=== PATIENT | male | born 1975 | race African-American/Black ===

== ENCOUNTER 2018-07-02 16:52 | Inpatient (IN) | payer MEDICAID, OTHER ==
[2018-07-02 17:08] LABS: ADD MAN DIFF? NO
[2018-07-02 17:12] LABS: WHITE BLOOD COUNT 7.6 10^3/ul (4.8-10.8)
[2018-07-02 17:12] LABS: BASOPHIL # 0.1 10^3/ul (0.0-0.1); BASOPHILS % 0.9 % (0.0-2.0); EOSINOPHILS # 0.7 10^3/ul (0.0-0.5); EOSINOPHILS % 9.2 % (0.0-7.0); HEMATOCRIT 39.4 % (42.0-52.0); HEMOGLOBIN 12.9 g/dl (14.0-18.0); MEAN CORPUSCULAR HEMOGLOBIN 30.6 pg (29.0-33.0); MEAN CORPUSCULAR HGB CONC 32.7 g/dl (32.0-37.0); MEAN CORPUSCULAR VOLUME 93.6 fl (82.0-101.0); MEAN PLATELET VOLUME 9.5 fl (7.4-10.4); MONOCYTE # 0.7 10^3/ul (0.3-0.9); MONOCYTES % 8.5 % (0.0-11.0); NEUTROPHIL # 4.2 10^3/ul (1.6-7.5); NEUTROPHILS % 55.3 % (39.0-77.0); PLATELET COUNT 292 10^3/UL (140-415); RED BLOOD COUNT 4.21 10^6/ul (4.70-6.10); RED CELL DISTRIBUTION WIDTH 12.1 % (11.5-14.5)
[2018-07-02 17:30] LABS: ALANINE AMINOTRANSFERASE 58 IU/L (13-69); ALBUMIN 4.4 g/dl (3.3-4.9); ALBUMIN/GLOBULIN RATIO 1.37; ALKALINE PHOSPHATASE 106 IU/L (42-121); ANION GAP 12 (5-13); ASPARTATE AMINO TRANSFERASE 83 IU/L (15-46); BILIRUBIN,INDIRECT 0.4 mg/dl (0-1.1); BILIRUBIN,TOTAL 0.4 mg/dl (0.2-1.3); BLOOD UREA NITROGEN 19 mg/dl (7-20); CALCIUM 9.2 mg/dl (8.4-10.2); CARBON DIOXIDE 24 mmol/L (21-31); CHLORIDE 108 mmol/L (97-110); CREATININE 1.06 mg/dl (0.61-1.24); Estimated GFR > 60 mL/min (>60); GLUCOSE 88 mg/dl (70-220); SODIUM 144 mmol/L (135-144); TOTAL PROTEIN 7.6 g/dl (6.1-8.1)
[2018-07-02 17:32] LABS: ETHANOL < 10.0 mg/dl (0-0)
[2018-07-02 17:47] LABS: CREATINE KINASE 4138 IU/L (23-200)
[2018-07-02] MEDS: DIPHTH/TET/ACEL PERTUSS (ADULT) 0.5 ML VIAL IM* (18:30)
[2018-07-02] MEDS: HALOPERIDOL 5 MG INJ IM (19:44)
[2018-07-02] MEDS: LORAZEPAM 2 MG INJ IM (19:44)
[2018-07-02] MEDS: SOD CHLORIDE 0.9% 1,000 ML IV ×2 (20:00→21:20)
[2018-07-02] MEDS ORDERED: NACL 0.9% 3 ML SYG IV (20:30)
[2018-07-02] MEDS ORDERED: DOCUSATE SODIUM 100 MG CAP PO (20:30)
[2018-07-02] MEDS ORDERED: ACETAMINOPHEN 325 MG TAB PO ×2 (20:30)
[2018-07-02] MEDS ORDERED: BISACODYL (EC) 5 MG TAB PO (20:30)
[2018-07-02] MEDS ORDERED: ONDANSETRON 4 MG INJ IV ×2 (20:30)
[2018-07-02] MEDS ORDERED: LORAZEPAM 2 MG INJ IV (20:30)
[2018-07-02] MEDS: ENOXAPARIN 30 MG/0.3 ML SYG SC (21:00)
[2018-07-03] MEDS: SOD CHLORIDE 0.9% 1,000 ML IV ×7 (03:05→23:05)
[2018-07-03 07:06] LABS: ADD MAN DIFF? NO
[2018-07-03 07:09] LABS: BASOPHIL # 0.1 10^3/ul (0.0-0.1); BASOPHILS % 0.9 % (0.0-2.0); EOSINOPHILS # 0.8 10^3/ul (0.0-0.5); EOSINOPHILS % 14.1 % (0.0-7.0); HEMATOCRIT 40.2 % (42.0-52.0); HEMOGLOBIN 12.9 g/dl (14.0-18.0); LYMPHOCYTES # 1.6 10^3/ul (0.8-2.9); LYMPHOCYTES % 27.5 % (15.0-51.0); MEAN CORPUSCULAR HEMOGLOBIN 30.4 pg (29.0-33.0); MEAN CORPUSCULAR HGB CONC 32.1 g/dl (32.0-37.0); MEAN CORPUSCULAR VOLUME 94.8 fl (82.0-101.0); MEAN PLATELET VOLUME 9.3 fl (7.4-10.4); MONOCYTE # 0.4 10^3/ul (0.3-0.9); MONOCYTES % 7.3 % (0.0-11.0); NEUTROPHIL # 2.9 10^3/ul (1.6-7.5); PLATELET COUNT 269 10^3/UL (140-415); RED BLOOD COUNT 4.24 10^6/ul (4.70-6.10); RED CELL DISTRIBUTION WIDTH 12.4 % (11.5-14.5)
[2018-07-03 07:09] LABS: WHITE BLOOD COUNT 5.8 10^3/ul (4.8-10.8)
[2018-07-03 07:17] LABS: HEMOGLOBIN A1C 5.2 % (0-5.9)
[2018-07-03 07:27] LABS: ALANINE AMINOTRANSFERASE 52 IU/L (13-69); ALBUMIN 3.7 g/dl (3.3-4.9); ALBUMIN/GLOBULIN RATIO 1.32; ALKALINE PHOSPHATASE 94 IU/L (42-121); ANION GAP 6 (5-13); ASPARTATE AMINO TRANSFERASE 76 IU/L (15-46); BILIRUBIN,INDIRECT 1.1 mg/dl (0-1.1); BILIRUBIN,TOTAL 1.1 mg/dl (0.2-1.3); BLOOD UREA NITROGEN 16 mg/dl (7-20); CALCIUM 8.6 mg/dl (8.4-10.2); CARBON DIOXIDE 25 mmol/L (21-31); CHLORIDE 111 mmol/L (97-110); CHOL/HDL RATIO 2.3 RATIO; CHOLESTEROL 164 mg/dl (100-200); CREATININE 0.93 mg/dl (0.61-1.24); Estimated GFR > 60 mL/min (>60); GLUCOSE 75 mg/dl (70-220); HDL CHOLESTEROL 69 mg/dl (28-63); LDL CHOLESTEROL,CALCULATED 86 mg/dl; MAGNESIUM 2.2 mg/dl (1.7-2.5); SODIUM 142 mmol/L (135-144); TOTAL PROTEIN 6.5 g/dl (6.1-8.1); TRIGLYCERIDES 44 mg/dl (0-149)
[2018-07-03 07:48] LABS: CREATINE KINASE 2782 IU/L (23-200)
[2018-07-03 08:32] LABS: THYROID STIMULATING HORMONE 0.159 MIU/L (0.465-4.680)
[2018-07-03] MEDS: ENOXAPARIN 30 MG/0.3 ML SYG SC (20:49)
[2018-07-04] MEDS: SOD CHLORIDE 0.9% 1,000 ML IV ×4 (01:50→12:25)
[2018-07-04 02:58] LABS: BARBITURATES Negative (NEGATIVE); BENZODIAZEPINES Negative (NEGATIVE); CANNABINOIDS Negative (NEGATIVE); COCAINE Negative (NEGATIVE); OPIATES Negative (NEGATIVE)
[2018-07-04 03:05] LABS: AMPHETAMINE/METHAMPHETAMINE Positive (NEGATIVE)
[2018-07-04 08:03] LABS: CREATINE KINASE 1486 IU/L (23-200)
[2018-07-04] MEDS: ENOXAPARIN 30 MG/0.3 ML SYG SC (20:16)
[2018-07-05 07:00] LABS: CREATINE KINASE 1227 IU/L (23-200)
== END 2018-07-05 17:40 | disposition home or self-care (01) | DRG 557 ==
LOC: E/R 16:52 → 5EC 20:17
DX: M62.82 Rhabdomyolysis (principal); G92 Toxic encephalopathy; Y35.891A Legal intervention involving other specified means, law enforcement official injured, initial encounter; Z59.0 Homelessness
CPT/HCPCS: 36415; 70450; 80053; 80061; 80307; 82550; 83036; 83735; 84443; 85025; 93005; 96372; 99285-25